=== PATIENT | female | born 1950 | race Caucasian/White ===

== ENCOUNTER → 2024-11-11 | Day surgery (SDC) | payer MEDICARE, MEDICAID ==
[~2024-11-11] VITALS: Ht 152.4 cm; Wt 68.9 kg
[~2024-11-11] MED LIST: AMLO10TA80 PO; ATOR20TA65 PO; CEFAZOLIN SODIUM 1000MG/VIAL ONE; DONE5TAB33 PO; EPINEPHRINE 1:1000 1 MG/ML AMP ONE; HYDR12.54 PO; HYDROCODONE/ACETAMINOPHEN 5/325MG TABLET PO PRN; HYDROMORPHONE HCL/PF 2MG/ML INJ ONE; LIDOCAINE HCL/EPINEPHRINE 1%-EPI 1:100,000 20ML VIAL ONE; MIRT-89 PO; MORPHINE SULFATE 2 MG/ML INJ (NOT FOR IM USE) IV PRN; NALOXONE HCL 0.4MG/ML VIAL IV PRN; OXYC-100 MT; ROCURONIUM BROMIDE 10MG/ML VIAL 5ML IV ONE; SUCCINYLCHOLINE CHLORIDE 200MG/10ML IV ONE
[2024-11-11] MEDS: LACTATED RINGERS 1,000 ML IV SCH (06:38)
[2024-11-11] MEDS: ONDANSETRON HCL 4MG/2ML INJ IV PRN (11:16)
[2024-11-11 11:18] VITALS: BP 130/70; PULSE 58; RESP 18
[2024-11-11] MEDS: HYDROCODONE/ACETAMINOPHEN 5/325MG TABLET PO PRN (11:18)
[2024-11-11] MEDS: FAMOTIDINE 20MG/2ML VIAL IV NR (12:28)
== END | disposition home or self-care (01) ==
LOC: OR 05:46
DX: S46.012A Strain of muscle(s) and tendon(s) of the rotator cuff of left shoulder, initial encounter (principal); S46.112A Strain of muscle, fascia and tendon of long head of biceps, left arm, initial encounter; G89.29 Other chronic pain; I10 Essential (primary) hypertension; E78.5 Hyperlipidemia, unspecified; M19.90 Unspecified osteoarthritis, unspecified site; Z79.899 Other long term (current) drug therapy; Z98.890 Other specified postprocedural states; X58.XXXA Exposure to other specified factors, initial encounter; Y93.89 Activity, other specified; Y92.89 Other specified places as the place of occurrence of the external cause; Y99.8 Other external cause status
CPT/HCPCS: 23430; 29826; 29827; C1713 ×3; J0690; J3490 ×2; J1308; J2004; J2405; J0330; J1171

== ENCOUNTER 2025-02-18 12:59 | Emergency (ER) | payer MEDICARE, MEDICAID ==
[~2025-02-18] VITALS: Ht 152.4 cm; Wt 66.0 kg
[~2025-02-18 12:59] MED LIST changes: -CEFAZOLIN SODIUM 1000MG/VIAL ONE; -EPINEPHRINE 1:1000 1 MG/ML AMP ONE; -HYDROCODONE/ACETAMINOPHEN 5/325MG TABLET PO PRN; -HYDROMORPHONE HCL/PF 2MG/ML INJ ONE; -LIDOCAINE HCL/EPINEPHRINE 1%-EPI 1:100,000 20ML VIAL ONE; -MORPHINE SULFATE 2 MG/ML INJ (NOT FOR IM USE) IV PRN; -NALOXONE HCL 0.4MG/ML VIAL IV PRN; -ROCURONIUM BROMIDE 10MG/ML VIAL 5ML IV ONE; -SUCCINYLCHOLINE CHLORIDE 200MG/10ML IV ONE
[2025-02-18 13:07] VITALS: O2SAT 100
[2025-02-18 14:15] LABS: BASOPHILS % 1.3 % (0.0-2.0); EOSINOPHILS % 2.5 % (0.0-5.0); HEMATOCRIT. 37.5 % (36.0-48.0); HEMOGLOBIN. 12.4 g/dL (12.0-16.0); LYMPHOCYTES % 34.3 % (20.0-50.0); MEAN PLATELET VOLUME 10.3 fl (7.4-10.4); MONOCYTES % 8.8 % (2.0-8.0); NEUTROPHILS % 53.1 % (40.0-76.0); PLATELET 269 x1000/uL (130-400); RED BLOOD CELL COUNT 4.33 mill/uL (4.2-5.4); RED CELL DISTRIBUTION WIDTH 14.4 % (11.6-14.6)
[2025-02-18 14:33] LABS: CREATININE 0.9 mg/dL (0.6-1.0); UREA NITROGEN BLOOD 11 mg/dL (9-23)
[2025-02-18 14:34] LABS: TROPONIN I HIGH SENSITIVITY 4 ng/L (3.0-34)
[2025-02-18] MEDS: SODIUM CHLORIDE 0.9% 1,000 ML IV ONE (14:50)
[2025-02-18] MEDS: METOCLOPRAMIDE HCL 10MG/2ML VIAL IV ONE (14:50)
[2025-02-18] MEDS ORDERED: IOHEXOL-350 100 ML BOTTLE ONE (23:09)
[2025-02-19 00:47] VITALS: BP 121/52; PULSE 61; RESP 20; TEMP 36.8; O2SAT 95
== END 2025-02-19 01:15 | disposition short-term general hospital (02) ==
LOC: ER 12:59
DX: I67.1 Cerebral aneurysm, nonruptured (principal); R42 Dizziness and giddiness; R51.9 Headache, unspecified; E78.00 Pure hypercholesterolemia, unspecified; I10 Essential (primary) hypertension; Z98.890 Other specified postprocedural states; Z79.899 Other long term (current) drug therapy
CPT/HCPCS: 99291; 70496; 96361; 96374; 80048; 85025; 84484; 36415; 70498; 93005; 70450; Q9967; J2765; J7030